=== PATIENT | male | born 1995 | race Caucasian/White ===

== ENCOUNTER 2018-03-19 18:45 | Emergency (ER) | payer OTHER ==
[~2018-03-19] VITALS: Ht 172.7 cm; Wt 63.0 kg
[~2018-03-19 18:45] MED LIST: ADALKIT PO; CALCTAB76 PO; CHOL100010 PO; CPR500 PO; FERR160T PO; LACT10CA PO; LACT3000 PO; MESA1.2T PO; MESA10002 PR; MTR500 PO; MULTTAB PO; OMEGCAP2 PO; SACC250C PO
[2018-03-19 18:52] VITALS: TEMP 36.9; Ht 172.7 cm; Wt 63.0 kg
[2018-03-19] MEDS ORDERED: ONDANSETRON INJ 2 MG/ML 2 ML VIAL IV STA (19:01)
[2018-03-19] MEDS ORDERED: HYOSCYAMINE SULFATE 0.125 MG SL TAB SL STA (19:01)
[2018-03-19] MEDS ORDERED: SODIUM CHLORIDE 0.9% 1000ML 1,000 ML IV STA (19:01)
[2018-03-19] MEDS ORDERED: CHOL100027 PO (19:26)
[2018-03-19] MEDS ORDERED: LACT1CAP3 PO (19:26)
[2018-03-19] MEDS ORDERED: [UNRECOGNIZED DRUG - CODE] PO (19:26)
[2018-03-19] MEDS ORDERED: ADAL40KI INJ (19:26)
[2018-03-19 19:29] LABS: BASO % 0.1 %; BASO ABS # 0.01 K/uL (0-0.2); EOS % 0.1 %; EOS ABS # 0.01 K/uL (0-0.5); HEMATOCRIT 44.8 % (42-52); HEMOGLOBIN 15.4 g/dL (14.0-18.0); IG# 0.02 K/uL (0.00-0.02); LYMPH % 7.9 %; LYMPH ABS # 0.96 K/uL (1.2-3.4); MEAN CELL VOLUME 91.1 fL (80-100); MEAN CORPUSCULAR HEMOGLOBIN 31.3 pg (25-34); MEAN CORPUSCULAR HGB CONC 34.4 g/dl (32-36); MEAN PLATELET VOLUME 8.8 fL (7.4-10.4); MONO % 6.4 %; MONO ABS # 0.78 K/uL (0.11-0.59); NEUT % 85.3 %; NEUT ABS # 10.43 K/uL (1.4-6.5); PLATELET COUNT 230 K/uL (130-400); RED CELL DISTRIBUTION WIDTH CV 12.8 % (11.5-14.5); RED CELL DISTRIBUTION WIDTH SD 42.3 fL (36.4-46.3); WHITE BLOOD COUNT 12.21 K/uL (4.8-10.8)
[2018-03-19 19:46] LABS: ALBUMIN 4.2 gm/dl (3.4-5.0); CALCIUM 9.2 mg/dl (8.5-10.1); CREATININE 0.98 mg/dl (0.60-1.40); POTASSIUM 3.6 mmol/L (3.5-5.1)
[2018-03-19] MEDS ORDERED: ONDA4TAB10 SL (20:03)
[2018-03-19] MEDS ORDERED: HYOS1TAB PO (20:03)
[2018-03-19] MEDS ORDERED: ONDANSETRON HOME PACK 4MG OD TAB PO ONE (20:15)
[2018-03-19 20:17] VITALS: BP 118/71; PULSE 93; O2SAT 99
--- NOTE | 2018-03-20 00:55 | EMERGENCY ROOM VISIT NOTE ---
History Report prepared by Guerda: Lucien Onofre Under the Supervision of: Dr. Yassine Juarez M.D. First contact with patient: 18:54 Chief Complaint: ABDOMINAL PAIN Stated Complaint: STOMACH PAIN, CROHNS DISEASE History of Present Illness The patient is a 22 year old male who presents to the Emergency Room with complaints of persistent, severe stomach pain and diarrhea beginning 5 hours ago. He describes his abdominal pain as a knot in the center of his abdomen. The patient reports that he has experienced several episodes of diarrhea today. He states that his diarrhea has been extremely liquidly with small amounts of blood. The patient reports that he feels nauseas and notes vomiting once [facility] in the ED today. 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 He denies any fever, exposure to ill individuals, recent travel outside of the country, or recent antibiotic use. Source of History: patient, parent (Mother ) Onset: 5 hours ago. Position: abdomen Symptom Intensity: severe Quality: other (knot ) Timing: other (persistent ) Modifying Factors (Worsening): other (none ) Modifying Factors (Relieving): other (none ) Associated Symptoms: + nausea, + vomiting, + abdominal pain, No fevers Note: Denies: Exposure to ill individuals, recent travel outside of the country, recent antibiotic use. Associated Symptoms: Blood in diarrhea. Review of Systems See HPI for pertinent positives & negatives. A total of 10 systems reviewed and were otherwise negative. Past Medical & Surgical Medical Problems: (1) Contusion of right foot (2) Crohns disease (3) Exacerbation of Crohn's disease (4) Exacerbation of Crohn's disease with complication (5) Fever (6) Fever (7) Hepatic abscess (8) Splenomegaly Family History Cancer Diabetes mellitus Hypertension Seizures Social History Smoking Status: Never Smoker Alcohol Use: none Drug Use: none Marital Status: single Housing Status: lives with family Occupation Status: student Current/Historical Medications Scheduled Adalimumab (Humira Pen), 40 MG INJ [id number] Calcium Carbonate-Vitamin D (Calcium 500+D), 1 TAB PO HS Cholecalciferol (Vitamin D 1000 Unit), 1,000 INTER.UNIT PO DAILY Ferrous Sulfate Dried (Slow Iron), 160 MG PO QAM Lactase (Lactaid), 3,000 UNITS PO AMHS Lactobacillus Rhamnosus (GG) (Culturelle), 1 TAB PO Q2D Mesalamine (Lialda), 2 TAB PO BID Mesalamine (Canasa), 1 SUPP MO Q3DAYS Multivitamins/Minerals (Mvi With Minerals), 1 TAB PO QAM [place]-3 Fatty Acids (Fish Oil), 2 CAP PO AMHS Ondasetron Odt (Zofran Odt), 4 MG SL Q6H Saccharomyces Boulardii (Florastor), 250 MG PO Q2D Scheduled PRN Hyoscyamine Sulfate (Levsin), 0.125 MG PO Q6 PRN for Pain Allergies Coded Allergies: No Known Allergies (Unverified , 07/08/16) Physical Exam Vital Signs Date Time Temp Pulse Resp B/P (MAP) Pulse Ox O2 Delivery O2 Flow Rate FiO2 03/19/18 20:17 93 18 118/71 99 Room Air 03/19/18 18:52 36.9 87 16 122/81 99 Room Air Physical Exam Constitutional: Vital signs reviewed. Eyes: Pupils are equal round reactive to light. Conjunctiva are noninjected. ENT: Pharynx is clear without erythema or exudate. Mucous membranes are dry. Neck supple without meningeal signs. Respiratory: Clear to auscultation bilaterally. Breath sounds are equal bilaterally. Cardiovascular: Regular rate and rhythm. No rubs or gallops. GI: Soft, Mild left upper quadrant tenderness, no guarding. Bowel sounds are present. Musculoskeletal: No peripheral edema. Integumentary: No cyanosis. Neurological: The patient is awake and alert. No focal deficits. Psychiatric: Normal affect. Medical Decision & Procedures Laboratory Results 03/19/18 19:15 Red Blood Count 4.92, Mean Corpuscular Volume 91.1, Mean Corpuscular Hemoglobin 31.3, Mean Corpuscular Hemoglobin Concent 34.4, Mean Platelet Volume 8.8, Neutrophils (%) (Auto) 85.3, Lymphocytes (%) (Auto) 7.9, Monocytes (%) (Auto) 6.4, Eosinophils (%) (Auto) 0.1, Basophils (%) (Auto) 0.1, Neutrophils # (Auto) 10.43, Lymphocytes # (Auto) 0.96, Monocytes # (Auto) 0.78, Eosinophils # (Auto) 0.01, Basophils # (Auto) 0.01 03/19/18 19:15 Test 4/29/18 19:15 White Blood Count 12.21 K/uL (4.8-10.8) Red Blood Count 4.92 M/uL (4.7-6.1) Hemoglobin 15.4 g/dL (14.0-18.0) Hematocrit 44.8 % (42-52) Mean Corpuscular Volume 91.1 fL (80-100) Mean Corpuscular Hemoglobin 31.3 pg (25-34) Mean Corpuscular Hemoglobin Concent 34.4 g/dl (32-36) Platelet Count 230 K/uL (130-400) Mean Platelet Volume 8.8 fL (7.4-10.4) Neutrophils (%) (Auto) 85.3 % Lymphocytes (%) (Auto) 7.9 % Monocytes (%) (Auto) 6.4 % Eosinophils (%) (Auto) 0.1 % Basophils (%) (Auto) 0.1 % Neutrophils # (Auto) 10.43 K/uL (1.4-6.5) Lymphocytes # (Auto) 0.96 K/uL (1.2-3.4) Monocytes # (Auto) 0.78 K/uL (0.11-0.59) Eosinophils # (Auto) 0.01 K/uL (0-0.5) Basophils # (Auto) 0.01 K/uL (0-0.2) RDW Standard Deviation 42.3 fL (36.4-46.3) RDW Coefficient of Variation 12.8 % (11.5-14.5) Immature Granulocyte % (Auto) 0.2 % Immature Granulocyte # (Auto) 0.02 K/uL (0.00-0.02) Anion Gap 6.0 mmol/L (3-11) Est Creatinine Clear Calc Drug Dose 105.4 ml/min Estimated GFR () 126.3 Estimated GFR (Non- 109.0 BUN/Creatinine Ratio 10.6 (10-20) Calcium Level 9.2 mg/dl (8.5-10.1) Total Bilirubin 0.6 mg/dl (0.2-1) Direct Bilirubin 0.1 mg/dl (0-0.2) Aspartate Amino Transf (AST/SGOT) 17 U/L (15-37) Alanine Aminotransferase (ALT/SGPT) 32 U/L (12-78) Alkaline Phosphatase 103 U/L (45-117) Total Protein 9.0 gm/dl (6.4-8.2) Albumin 4.2 gm/dl (3.4-5.0) Lipase 73 U/L (73-393) Laboratory results as reviewed by me. Medications Administered Medications (Trade) Dose Ordered Sig/Jovan Route Start Time Stop Time Status Last Admin Dose Admin Sodium Chloride 1,000 ml @ 999 mls/hr Q1H1M STAT IV 03/19/18 19:01 03/19/18 20:01 DC 03/19/18 19:25 999 MLS/HR Ondansetron HCl (Zofran Inj) 4 mg NOW STAT IV 03/19/18 19:01 03/19/18 19:04 DC 03/19/18 19:25 4 MG Hyoscyamine Sulfate (Levsin Tab) 0.125 mg NOW STAT SL 03/19/18 19:01 03/19/18 19:04 DC 03/19/18 19:25 0.125 MG Ondansetron HCl (ZOFRAN ODT 4MG Home Pack) 1 homepack UD ONCE PO 03/19/18 20:15 03/19/18 20:16 DC 03/19/18 20:16 1 HOMEPACK ED Course 1904: The patient was evaluated in room B8. A complete history and physical exam was performed. 1900: Ordered Levsin Tab 0.125mg SL, Zofran Inj 4mg IV, and Sodium Chloride 1000 ml @ 999 mls/hr IV. 1999: I discussed test results with the patient. He said he is feeling better. I discussed the possibility of CT scan and decided that it is not necessary at this time. I informed the patient that he should have a low threshold for return if his symptoms worsen. 2005: Upon reevaluation, the patient appeared to have improvement of his symptoms. I discussed tonight's findings with him . He verbalized agreement of the treatment plan. He was discharged home. Medical Decision This is a 22-year-old male presents with abdominal pain, vomiting and diarrhea. Differential diagnosis includes Crohn's exacerbation, gastroenteritis, foodborne illness, dehydration, electrolyte abnormality. I did perform a limited focused review of portions of the patient's old chart on the electronic medical record. The patient was seen in the ED in 2016 for a pericolonic abscess. I did evaluate the patient as noted above. Patient is presenting with vomiting and diarrhea. He states there is a small amount of blood in his stool and he does have some abdominal pain as well. He was concerned because he was not sure if this was gastroenteritis versus a Crohn's exacerbation. On examination he has very mild tenderness in the left upper quadrant. IV access was established. I did treat patient with normal saline IV. He was given Zofran IV. He was also given Levsin. I did order and personally review the patient's urinalysis as described above. I did order and review the patient's blood work as noted in the electronic medical record. His white blood cell count is slightly elevated. Labs are otherwise unremarkable. He is not anemic. I did reassess the patient. He is feeling better. I did discuss the test results with the patient and his mother. At this time I could not determine whether or not his symptoms may be from his Crohn's disease or a result of gastroenteritis. I would lean toward the latter at this time. We did talk about the possibility of CT scanning but felt that it was reasonable to wait since he does feel better. Should he have any worsening symptoms he will return for further evaluation. He was discharged with a prescription for Zofran and Levsin. Medication Reconcilliation Current Medication List: was personally reviewed by me Blood Pressure Screening Patient's blood pressure: Normal blood pressure The patient is normotensive. Impression Primary Impression: Abdominal pain Additional Impressions: Vomiting Diarrhea Dehydration Scribe Attestation The scribe's documentation has been prepared under my direct and personally reviewed by me in its entirety. I confirm that the note above accurately reflects all work, treatment, procedures, and medical decision making performed by me. Departure Information Dispostion Home / Self-Care Prescriptions Hyoscyamine Sulfate (Levsin) 0.125 Mg Tab 0.125 MG PO Q6 Y for Pain, #20 TAB Prov: Yassine Juarez M.D. 03/19/18 Ondasetron Odt (ZOFRAN ODT) 4 Mg Tab 4 MG SL Q6H for Nausea, #6 TAB Prov: Yassine Juarez M.D. 03/19/18 Referrals Vira Vigil MD (PCP) Forms HOME CARE DOCUMENTATION FORM, IMPORTANT VISIT INFORMATION Patient Instructions ED Abdominal Pain Unkn Cause Male, My [facility] Additional Instructions You have been examined and treated today on an emergency basis only. This is not a substitute for, or an effort to provide, complete comprehensive medical care. It is impossible to recognize and treat all injuries or illnesses in a single emergency department visit. It is therefore important that you follow up closely with your physician. Call as soon as possible for an appointment. Return for worsening symptoms or if you develop fever, black or tarry stools, pain in the right lower abdomen or any other concerning symptoms. Problem Qualifiers Primary Impression: Abdominal pain Abdominal location: left upper quadrant Qualified Codes: R10.12 - Left upper quadrant pain Additional Impressions: Vomiting Vomiting type: unspecified Vomiting Intractability: non-intractable Nausea presence: with nausea Qualified Codes: R11.2 - Nausea with vomiting, unspecified Diarrhea Diarrhea type: unspecified type Qualified Codes: R19.7 - Diarrhea, unspecified
== END 2018-03-19 20:24 | disposition home or self-care (01) ==
LOC: C.EDB 18:47
DX: R10.13 Epigastric pain (principal); R11.10 Vomiting, unspecified; R19.7 Diarrhea, unspecified; E86.0 Dehydration; K50.90 Crohn's disease, unspecified, without complications